=== PATIENT | female | born 1995 | race Caucasian/White ===

== ENCOUNTER 2018-02-13 11:34 | Emergency (ER) | END 2018-02-13 12:50 | disposition home or self-care (01) ==

== ENCOUNTER 2018-07-08 12:56 | Emergency (ER) | payer SELFPAY ==
[~2018-07-08] VITALS: Wt 114.4 kg
[~2018-07-08 12:56] MED LIST: CLOT30CR24 TOP; HYDR-762 PO; MUPI22OI2 TOP; PENI500T PO
[2018-07-08 13:31] VITALS: BP 130/82; PULSE 71; RESP 20
[2018-07-08] MEDS ORDERED: BACI28.34 TOP (15:12)
--- NOTE | 2018-07-08 15:26 | ERD ---
ER Documentation Chief Complaint Chief Complaint L mid finger lac yesterday. dry at this time. HPI 23-year-old female presenting with a laceration to her left middle finger. Patient states that this happened yesterday when she cut herself with a construction knife. She denies any numbness or tingling. She is right-hand dominant. Does not recall her last tetanus shot. Denies medical problems. NKDA. Surgical history denies. Social history denies ROS All systems reviewed and are negative except as per history of present illness. Medications Home Meds Active Scripts Bacitracin* (Bacitracin Zinc Oint*) 28.35 Gm Oint, 1 APPLIC TOP BID, #1 TUB APPLI TO Prov:KEV DELGADO PA-C 07/08/18 Clotrimazole* (Clotrimazole* AF) 1% - 30 Gm Cream.gm., 1 APPLIC TOP BID for 7 Days, TUB Prov:KEV DELGADO PA-C 02/13/18 Mupirocin* (Bactroban*) 2% -22 Gram Oint...g., 1 APPLIC TOP BID for 7 Days, EA Prov:KEV DELGADO PA-C 02/13/18 Penicillin V Potassium* (Penicillin V K*) 500 Mg Tab, 500 MG PO TID for 10 Days, TAB Prov:MARIE LITTLE 10/21/15 Reported Medications Hydrocodone Bit-Acetaminophen* (Huger*) 10-325 Mg Tablet, 1 TAB PO Q4H PRN for PAIN, TAB 05/29/14 Allergies Allergies: Coded Allergies: Fish Containing Products (Unverified Allergy, Unknown, 02/13/18) No Known Drug Allergies (Verified Allergy, Unknown, 02/13/18) Uncoded Allergies: SEAFOOD (Allergy, Unknown, swelling, 06/30/13) PMhx/Soc History of Surgery: Yes (gallstones) Anesthesia Reaction: No Hx Neurological Disorder: No Hx Respiratory Disorders: No Hx Cardiac Disorders: No Hx Psychiatric Problems: No Hx Miscellaneous Medical Probl: No Hx Alcohol Use: No Hx Substance Use: No Hx Tobacco Use: No Smoking Status: Never smoker FmHx Family History: No diabetes, No coronary disease, No other Physical Exam Vitals Vital Signs Date Temp Pulse Resp B/P (MAP) Pulse Ox O2 O2 Flow FiO2 Time Delivery Rate 07/08/18 98.6 71 20 130/82 100 13:31 (98) Physical Exam GENERAL: The patient is well-appearing, well-nourished, in no acute distress CHEST: Clear to auscultation bilaterally. There are no rales, wheezes or rhonchi. HEART: Regular rate and rhythm. No murmurs, clicks, rubs or gallops. No S3 or S4. ABDOMEN:Soft, nontender and nondistended. Good bowel sounds. No rebound or guarding. No gross peritonitis. No gross organomegaly or masses. BACK: No midline or flank tenderness. EXTREMITIES: Equal pulses bilaterally. There is no peripheral clubbing, cyanosis or edema. No focal swelling or erythema. Full range of motion. NEUROLOGIC: Alert and oriented. Cranial nerves II through XII intact. Motor strength in all 4 extremities with 5 out of 5 strength. Sensation grossly intact. Normal speech and gait. SKIN: 1 cm flap lac to left middle finger. No active bleeding. Results 24 hrs Current Medications Medications Dose Sig/Alaina Start Time Status Last (Trade) Ordered Route PRN Stop Time Admin Dose Reason Admin Diphtheria/ 0.5 ml ONCE ONCE 07/08/18 07/08/18 Tetanus/Acell IM* 15:30 07/08/18 15:17 Pertussis 15:31 (Adacel) Procedures/MDM ER course: Tdap given in the ED. MDM: 23-year-old female presenting with laceration. Patient's wound is greater than 8 hours old I will not close at this time. I have low suspicion for tendon or ligament injury. I have low suspicion for infectious process. Patient will be discharged with supportive medications and recommended to wash with soap and water and apply bandage. Patient is told symptoms change or worsen to return immediately to the ER. Patient is discharged with strict ER precautions and told to follow-up with primary care. All questions answered at discharge Departure Diagnosis: Primary Impression: Laceration Condition: Stable Patient Instructions: Laceration, Hand Referrals: COMMUNITY CLINICS YOU HAVE RECEIVED A MEDICAL SCREENING EXAM AND THE RESULTS INDICATE THAT YOU DO NOT HAVE A CONDITION THAT REQUIRES URGENT TREATMENT IN THE EMERGENCY DEPARTMENT. FURTHER EVALUATION AND TREATMENT OF YOUR CONDITION CAN WAIT UNTIL YOU ARE SEEN IN YOUR DOCTORS OFFICE WITHIN THE NEXT 1-2 DAYS. IT IS YOUR RESPONSIBILITY TO MAKE AN APPOINTMENT FOR FOLOW-UP CARE. IF YOU HAVE A PRIMARY DOCTOR --you should call your primary doctor and schedule an appointment IF YOU DO NOT HAVE A PRIMARY DOCTOR YOU CAN CALL OUR PHYSICIAN REFERRAL HOTLINE AT IF YOU CAN NOT AFFORD TO SEE A PHYSICIAN YOU CAN CHOSE FROM THE FOLLOWING [facility] [address] [facility] [address] [address] [facility] [address] [facility] [address] [facility]. [facility]. [address] Additional Instructions: FOLLOW UP WITH YOUR PRIMARY CARE PHYSICIAN TOMORROW.Return to this facility if you are not improving as expected. KEV DELGADO PA-C July 08, 2018 15:26
[2018-07-08] MEDS ORDERED: DIPHTH/TET/ACEL PERTUSS (ADULT) 0.5 ML VIAL IM* ONE (15:30)
== END 2018-07-08 15:38 | disposition home or self-care (01) ==
LOC: FTE 12:56
DX: S61.213A Laceration without foreign body of left middle finger without damage to nail, initial encounter (principal); W26.0XXA Contact with knife, initial encounter; Y92.9 Unspecified place or not applicable; Z23 Encounter for immunization
CPT/HCPCS: 90471; 90715